=== PATIENT | male | born 1965 | race Caucasian/White ===

== ENCOUNTER → 2023-09-12 | Outpatient (CLI) | payer OTHER ==
[2023-09-12 14:36] VITALS: BP 155/84; PULSE 74; RESP 16; TEMP 98.1
--- NOTE | 2023-09-12 15:33 | P.SLEEP ---
History of Present Illness DATE: 09/12/2023 CONSULTATION/NEW PATIENT EVALUATION HISTORY OF PRESENT ILLNESS/SLEEP-WAKE EVALUATION: 58-year-old gentleman had b een evaluated in the sleep center for obstructive sleep apnea hypopnea syndrome. Patient has history of obstructive sleep apnea for more than 15 years. He is on treatment with CPAP every night. I checked his CPAP unit. CPAP unit is very old. CPAP pressure is 12.5 cm of water, usage is 100%, average 6.5 hours per night. CPAP unit does not have information about apnea hypopnea index. SLEEP SCHEDULE: Usually sleep schedule from [id number] PM to 5:30 AM on weekdays and until 6 AM on weekend. FALLING ASLEEP: No problems with falling asleep. DURING SLEEP: Patient sleeps well with the machine, no information about snoring. Occasional dry mouth and sweating no history of hypnogogical hallucinations, sleep paralysis, or cataplexy. Patient may wake up from sleep 2 times with nocturia. DURING THE DAY/WAKE STATE: In the morning patient wake up tired. Avery sleepiness scale is borderline 10. Usually patient does not take any naps. PAST MEDICAL HISTORY: In the morning patient may wake up tired, has episodes of irritability PAST SURGICAL HISTORY: Please see below. MEDICATIONS: Please see below. SOCIAL HISTORY: Please see below. FAMILY HISTORY: Hypertension, heart problems, stroke, cancer, snoring, sleep apnea. REVIEW OF SYSTEMS: Awakenings from sleep with nocturia, some sleepiness during the day. No fevers. No double vision. No recent chest pain. No shortness of br eath. No abdominal pain. No bleeding episodes. No blood in urine. No seizure episodes. PHYSICAL EXAMINATION: GENERAL: A pleasant patient without any distress. VITAL SIGNS: Please see below. HEENT: PERRLA, EOMI. Evaluation of oropharynx showed tongue protrudes midline, low position of soft palate Mallampati 3. NECK: Supple. No JVD. Thyroid is not palpable. 18.5 inches in circumference. LUNGS: Clear to percussion and to auscultation. Good air exchange. No wheezing or rhonchi. HEART: S1, S2 regular. No murmurs, gallops or rubs. ABDOMEN: Soft and nontender. Bowel sounds are present. No organomegaly appreciated. EXTREMITIES: No clubbing or cyanosis. SPD TECH: Awake, alert, and oriented x3. Cranial nerves 2 to 7 intact. There is no fasciculation or atrophy noted. No focal deficits observed. ASSESSMENT: 1. Obstructive sleep apnea hypopnea syndrome for many years, patient continued to use his CPAP equipment and demonstrated good compliance. CPAP unit is very old and does not have information about apnea hypopnea index. Small oropharyngeal airspace, wide neck. 2. Obesity, BMI 37.1. 3. Hypertension. 4. Hyperlipidemia. 5 status post right shoulder surgery. 6 status post hernia repair. PLAN: 1. Prescription to replace CPAP unit to AutoPap. 2. To get results of previous sleep studies. 3. Follow-up visit in 30 to 90 days after patient will get new CPAP unit to evaluate clinical response on treatment, compliance with treatment and check apnea-hypopnea index. 4. No driving if patient feels any sleepiness. Patient is aware of civil and criminal liability for unsafe driving. 5. Sleep hygiene with regular sleep time for at least 7.5-8 hours. 6. Watching and losing weight. Thank you very much for referring this patient for consultation. Sincerely, Elliott Villar MD, PhD, FAASM. Diplomat of [employer], Sleep Medicine Board by [employer] Oil Pipe Inspector Helper [facility] Past Medical History Past Medical History: Hyperlipidemia, Hypertension, Sleep Apnea/CPAP/BIPAP Additional Past Medical History / Comment(s): snoring, nasal polyps History of Any Multi-Drug Resistant Organisms: None Reported Past Surgical History: Heart Catheterization, Orthopedic Surgery Additional Past Surgical History / Comment(s): sinus surgery Past Anesthesia/Blood Transfusion Reactions: No Reported Reaction Past Psychological History: No Psychological Hx Reported Smoking Status: Former smoker Past Alcohol Use History: Daily Past Drug Use History: None Reported - Past Family History Father Family Medical History: Cancer, Coronary Artery Disease (CAD), Diabetes Mellitus, Hyperlipidemia, Hypertension, Osteoarthritis (OA), Sleep Apnea/CPAP/BIPAP, Thyroid Disorder Mother Family Medical History: Coronary Artery Disease (CAD), CVA/TIA, Hyperlipidemia, Sleep Apnea/CPAP/BIPAP Medications and Allergies Home Medications Medication Instructions Recorded Confirmed Type Fish Oil/Dha/Epa [Fish Oil 1,200 1,000 mg PO BID 08/26/13 06/09/15 History mg Fish Oil] Ibuprofen [Advil] 200 mg PO Q8HR PRN 08/26/13 06/09/15 History Losartan Potassium [Cozaar] 25 mg PO DAILY 08/26/13 09/12/23 History Simvastatin [Zocor] 40 mg PO HS 08/26/13 09/12/23 History hydroCHLOROthiazide [Hydrodiuril] 12.5 mg PO DAILY 08/26/13 06/09/15 History HYDROcodone/APAP 10-325MG [[place] 1 - 2 tab PO Q4HR PRN #60 tab 08/29/13 06/09/15 Rx 10] Sulfamethox-Tmp 800-160Mg [Bactrim 1 tab PO Q12HR #10 tab 06/10/15 Rx DS 800-160 mg] Allergies Allergy/AdvReac Type Severity Reaction Status Date / Time cephalexin monohydrate Allergy Rash/Hives Verified 06/09/15 23:26 [From Keflex] Physical Exam Vitals: Vital Signs Temp Pulse Resp BP Pulse Ox 09/12/23 14:35 98.1 F 74 16 155/84 98 Sleep Note - Sleep Data ESS Total: 10 - Sleep Note Sleep Note: Temperature: 98.1 F Pulse Rate: 74 Respiratory Rate: 16 Blood Pressure: 155/84 SpO2: 98 Height: Weight: BMI: Neck Circumference: 18.5
== END ==
LOC: 3 N SLEEP 13:49
PROVIDERS: ATTEND Internal Medicine
DX: G47.33 Obstructive sleep apnea (adult) (pediatric) (principal); E66.9 Obesity, unspecified; I10 Essential (primary) hypertension; E78.5 Hyperlipidemia, unspecified; Z98.890 Other specified postprocedural states; Z90.49 Acquired absence of other specified parts of digestive tract; Z68.37 Body mass index [BMI] 37.0-37.9, adult; Z99.89 Dependence on other enabling machines and devices; Z87.891 Personal history of nicotine dependence; Z88.1 Allergy status to other antibiotic agents; Z79.899 Other long term (current) drug therapy
CPT/HCPCS: 99211

== ENCOUNTER → 2024-06-05 | Outpatient (CLI) | payer OTHER ==
--- NOTE | 2024-06-12 17:18 | P.PCN ---
Description of Procedure: CLINICAL: A home sleep apnea test has been done for confirmation of possible obstructive sleep apnea-hypopnea syndrome. DESCRIPTION OF PROCEDURE: RESULTS: Recording time was 6 hours 58 minutes. Evaluation time was 6 hours 46 minutes. Evaluation time is sufficient for making conclusion about results of the test. Raw data of sleep recording has been reviewed and is adequate. Respiratory channel showed 98 apneas and 163 hypopneas. Apnea-hypopnea index was 38.5 per hour, which included obstructive apnea index 3.7, central apnea index 10.3, mixed apnea index 0.1. Pulse rate in the range between minimum 55, maximum 103, average 70 by computer calculation. Lowest desaturation was 82%. IMPRESSION: 1. 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 Please see other impressions from consultation. PLAN: 1. The patient will start treatment with AutoPap for correction of respiratory abnormalities during sleep. 2. I will see patient for follow-up visit to evaluate clinical response on treatment, compliance with treatment and make any necessary adjustments related to mask fitting, pressure and humidification. 3. Sleep hygiene with regular time in bed for at least 8 hours. 4. No driving if feeling any sleepiness. 5. Watching weight. Thank you very much for allowing me to participate in the management of your patient. Sincerely, Elliott Villar MD, PhD, FAASM Diplomat of [employer] Sleep Medicine Board of [place] [employer] Crutch Maker of [facility] [place] cc: Jl Lyles MD
== END ==
LOC: 3 N SLEEP 17:02
PROVIDERS: ATTEND Internal Medicine
DX: G47.33 Obstructive sleep apnea (adult) (pediatric) (principal); G47.31 Primary central sleep apnea; Z88.1 Allergy status to other antibiotic agents; Z87.891 Personal history of nicotine dependence

== ENCOUNTER → 2024-07-02 | Outpatient (CLI) | payer OTHER ==
[2024-07-02 16:31] VITALS: BP 129/80; PULSE 83; RESP 18; TEMP 98
--- NOTE | 2024-07-02 16:50 | P.PROGSL ---
Subjective DATE: 07/02/2024 FOLLOW UP VISIT. Patient with obstructive sleep apnea hypopnea syndrome return to sleep center for follow-up visit. Recently patient failed home sleep apnea test which showed that patient has severe sleep apnea with presence of obstructive and central sleep apneas. Patient received CPAP unit and this is first visit after he sta rted treatment with CPAP. Information from previous visit have been reviewed. Patient is using PAP equipment every night for the whole night, getting PAP supplies in time. The patient does not have significant problems with the mask, PAP unit and humidification. Keyes sleepiness scale is increased to 14. I checked information from PAP unit. PAP unit pressure 10-14, average 11.8 cm H2O. Usage is 97% for more then 4 hours, average 6.75 hours per night. Leak is 16.9 l/m, which is in acceptable range. Apnea Hypopnea Index is 0.6, which is perfect. MEDICATIONS have been reviewed, please see below. During physical exam: GENERAL: A pleasant patient without any distress. VITAL SIGNS: Please see below, weight is 252 lbs. HEENT: PERRLA, EOMI.low position of soft palate, Mallapati 3 . NECK: Supple. No JVD. LUNGS: Clear to percussion and to auscultation. Good air exchange. No wheezing or rhonchi. HEART: S1, S2 regular. ABDOMEN: Soft and nontender.[] EXTREMITIES: No clubbing or cyanosis. DIESEL POWERPLANT SUPERVISOR: Awake, alert, and oriented x3. No focal deficit. Impressions: 1. Obstructive sleep apnea-hypopnea syndrome. Patient demonstrated great compliance with treatment, benefiting from treatment. 2. Obesity. 3. Hypertension. 4. Hyperlipidemia. 5. Status post hernia repair. 6. Status post right shoulder surgery. Plan: 1. Continue using PAP equipment every night for the whole night. 2. Sleep hygiene with regular time in bed for at least 7.5-8 hours 3. PAP unit should stay lower then position of the head. 4. Advised patient to remove all remaining water from humidifier canister daily and make it dry after each usage. Refill canister with fresh distilled water before each usage. 5. Watching weight. 6. Precautions related to driving. No driving if feel any sleepiness. 7. I will maintain prescription for PAP supplies including mask, tube, filters. 8. Follow up visit in 8 months or earlier if patient has any problems. Thank you very much for allowing me to participate in the management of your patient. Elliott Villar MD, PhD, FAASM. Diplomat of [employer], Sleep Medicine Board by [employer] Child Study Team Director of [facility] [place] Objective - Vital Signs Vital Signs: Vital Signs Temp 98.0 F 07/02/24 16:30 Pulse 83 07/02/24 16:30 Resp 18 07/02/24 16:30 BP 129/80 07/02/24 16:30 Pulse Ox 95 07/02/24 16:30 FiO2 Intake & Output 07/01/24 07/02/24 07/02/24 18:59 06:59 18:59 Weight 114.362 kg Home Medications: Home Medications Medication Instructions Recorded Confirmed Type Fish Oil/Dha/Epa [Fish Oil 1,200 1,000 mg PO BID 08/26/13 06/09/15 History mg Fish Oil] Ibuprofen [Advil] 200 mg PO Q8HR PRN 08/26/13 06/09/15 History Losartan Potassium [Cozaar] 25 mg PO DAILY 08/26/13 09/12/23 History Simvastatin [Zocor] 40 mg PO HS 08/26/13 09/12/23 History hydroCHLOROthiazide [Hydrodiuril] 12.5 mg PO DAILY 08/26/13 06/09/15 History HYDROcodone/APAP 10-325MG [[place] 1 - 2 tab PO Q4HR PRN #60 tab 08/29/13 06/09/15 Rx 10] Sulfamethox-Tmp 800-160Mg [Bactrim 1 tab PO Q12HR #10 tab 06/10/15 Rx DS 800-160 mg]
== END ==
LOC: 3 N SLEEP 16:17
PROVIDERS: ATTEND Internal Medicine
DX: G47.33 Obstructive sleep apnea (adult) (pediatric) (principal); E66.9 Obesity, unspecified; I10 Essential (primary) hypertension; E78.5 Hyperlipidemia, unspecified; Z99.89 Dependence on other enabling machines and devices; Z96.611 Presence of right artificial shoulder joint; Z98.890 Other specified postprocedural states; Z87.891 Personal history of nicotine dependence; Z88.1 Allergy status to other antibiotic agents
CPT/HCPCS: 99212